=== PATIENT | female | born 1945 | race Caucasian/White ===

== ENCOUNTER 2024-03-01 06:12 | Emergency (ER) | payer OTHER ==
[~2024-03-01] VITALS: Ht 157.5 cm; Wt 60.4 kg
[2024-03-01 06:26] VITALS: O2SAT 99
[2024-03-01] MEDS: METHYLPREDNISOLONE SOD SUCC 125MG/2ML (ACT-O-VIAL) IV SCH (07:15)
[2024-03-01] MEDS: DIPHENHYDRAMINE 50MG/ML VIAL IV SCH (07:15)
[2024-03-01] MEDS: FAMOTIDINE 20MG/2ML VIAL IV ONE (07:45)
[2024-03-01 09:20] VITALS: BP 138/54; PULSE 79; RESP 18; TEMP 36.66960; O2SAT 99
[2024-03-01] MEDS ORDERED: B50 PO (10:54)
[2024-03-01] MEDS ORDERED: P50 PO (10:54)
== END 2024-03-01 11:48 | disposition home or self-care (01) ==
LOC: ER 06:12
DX: L50.9 Urticaria, unspecified (principal)
CPT/HCPCS: 99284; 96374; 96375; J2919; J1200; J3490